=== PATIENT | female | born 1960 | race Caucasian/White ===

== ENCOUNTER 2017-09-06 07:18 | Emergency (ER) | payer OTHER ==
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
[2017-09-06 08:12] VITALS: BP 107/71; PULSE 75; TEMP 98.7; BMI 23.6
== END 2017-09-06 08:51 | disposition home or self-care (01) ==
LOC: FER 07:18
DX: S43.421A Sprain of right rotator cuff capsule, initial encounter (principal); W00.0XXA Fall on same level due to ice and snow, initial encounter; Y93.89 Activity, other specified; Y92.008 Other place in unspecified non-institutional (private) residence as the place of occurrence of the external cause
CPT/HCPCS: 73030-TC-RT-FY; 99281-25

== ENCOUNTER 2018-07-29 08:45 | Emergency (ER) | payer OTHER ==
[2018-07-29 08:49] VITALS: BP 113/69; PULSE 75; TEMP 98; BMI 24.3
--- NOTE | 2018-07-29 08:58 | PDOC ---
History of Present Illness - General Chief Complaint: Pain, Acute Stated Complaint: LEFT KNEE PAIN Time Seen by Provider: 07/29/18 08:57 - History of Present Illness Initial Comments: 07/29/18 09:24 Chief complaint: Left knee pain History of present illness: Patient twisted her left knee while walking her dog yesterday. Ambulating but with pain. Swelling. Review of systems: No distal pain, numbness, tingling, or limited range of motion. Remainder systems negative Past medical history: History of torn meniscus in the same knee 10 years ago. Otherwise healthy female, takes 1 baby aspirin daily for prophylaxis. Otherwise no other medications. Social/family history reviewed and noncontributory Physical exam: Alert and oriented well-developed well-nourished no acute distress cheerful and cooperative. Ambulating with a slight limp. Afebrile, vital signs normal HEENT clear Neck supple without bruit mass or nodes Chest clear CV regular without murmur rub or gallop Abdomen benign Neurological C2 to 12 intact. Strength full and symmetric. No focal sensory or motor deficits. Slight limp due to left knee pain Extremities no CCE There is mild swelling of the left knee medially, without warmth or erythema. No definite effusion. No joint space tenderness suggestive of acute meniscus injury. There is tenderness over the MCL. Stress tenderness is present. No laxity. LCL is normal. Lockman is indeterminate due to pain and guarding. Pulses full and symmetric. No distal sensory or motor deficits. Patella and patellar retinaculum intact and nontender Impression: Sprain MCL. Condition of ACL is uncertain, although there is no massive swelling or effusion that would suggest a torn ACL. Plan: X-ray is negative. Knee immobilizer. Motrin. Orthopedic follow-up. Patient adequately ambulatory and in no severe pain upon discharge to follow-up as directed Past History - Past Medical History Allergies/Adverse Reactions: Allergies Allergy/AdvReac Type Severity Reaction Status Date / Time ondansetron Allergy Verified 07/29/18 08:46 shellfish derived AdvReac Verified 07/29/18 08:46 Home Medications: Ambulatory Orders Aspirin [ASA -] 81 mg PO DAILY 09/06/17 Levothyroxine [Synthroid -] 150 mcg PO DAILY 09/06/17 Diclofenac Sodium 75 mg PO BID PRN #10 tablet. 07/29/18 COPD: No Thyroid Disease: Yes - Surgical History Cholecystectomy: Yes - Suicide/Smoking/Psychosocial Hx Smoking History: Current every day smoker Have you smoked in the past 12 months: Yes Number of Cigarettes Smoked Daily: 20 Information on smoking cessation initiated: Yes 'Breaking Loose' booklet given: 09/06/17 Hx Alcohol Use: Yes (OCASIONAL) Drug/Substance Use Hx: No Substance Use Type: None *Physical Exam - Vital Signs Last Vital Signs Temp Pulse Resp BP Pulse Ox 98.0 F 75 17 113/69 100 07/29/18 08:46 07/29/18 08:46 07/29/18 08:46 07/29/18 08:46 07/29/18 08:46 Moderate Sedation - Procedure Monitoring Vital Signs: Procedure Monitoring Vital Signs Temperature 98.0 F 07/29/18 08:46 Pulse Rate 75 07/29/18 08:46 Respiratory Rate 17 07/29/18 08:46 Blood Pressure 113/69 07/29/18 08:46 O2 Sat by Pulse Oximetry (%) 100 07/29/18 08:46 *DC/Admit/Observation/Transfer Diagnosis at time of Disposition: Left knee sprain Qualifiers: Encounter type: initial encounter Involved ligament of knee: medial collateral ligament Qualified Code(s): S83.412A - Sprain of medial collateral ligament of left knee, initial encounter - Discharge Dispostion Disposition: HOME Condition at time of disposition: Improved Decision to Admit order: No - Referrals Referrals: Hakeem Bryant MD [Staff Physician] - 1 week - Patient Instructions Printed Discharge Instructions: DI for Knee Sprain, How to Use an Elastic Bandage-Knee Sprain Additional Instructions: Rest, ice, elevate, elastic bandage. See orthopedist if no improvement one week. - Post Discharge Activity Forms/Work/School Notes: Back to Work
== END 2018-07-29 10:06 | disposition home or self-care (01) ==
LOC: FER 08:45
DX: S83.412A Sprain of medial collateral ligament of left knee, initial encounter (principal); X58.XXXA Exposure to other specified factors, initial encounter; Y93.89 Activity, other specified; Y92.89 Other specified places as the place of occurrence of the external cause; F17.210 Nicotine dependence, cigarettes, uncomplicated; E07.9 Disorder of thyroid, unspecified
CPT/HCPCS: 73560-TC-LT-FY; 99282-25

== ENCOUNTER 2019-03-18 10:06 | Day surgery (SDC) | payer OTHER ==
[2019-03-15 10:42] VITALS: BMI 24.0
--- NOTE | 2019-03-18 07:49 | OP ---
Operative Note - Note: Operative Date: 03/18/19 Pre-Operative Diagnosis: Left lateral meniscus tear Operation: Left partial lateral meniscectomy Post-Operative Diagnosis: Same as Pre-op Surgeon: Hakeem Bryant Physician Executive: Radha Reyes Anesthesia: General Operative Report Dictated: Yes
[~2019-03-18 10:06] MED LIST: LACTATED RINGERS SOLUTION 1,000 ML IV SCH; PROMETHAZINE HCL 25 MG/1 ML VIAL IVPUSH PRN; oxyCODONE HCL 5 MG TABLET PO PRN
[2019-03-18] MEDS ORDERED: SODIUM CHLORIDE 0.9% P/F 10 ML VIAL IJ ONE (10:11)
[2019-03-18] MEDS ORDERED: ceFAZolin SODIUM 1 GM VIAL ONE (10:11)
[2019-03-18] MEDS ORDERED: DEXAMETHASONE SOD PHOSPHATE 4 MG/1 ML VIAL ONE (10:11)
[2019-03-18] MEDS ORDERED: KETOROLAC TROMETHAMINE 30 MG/1 ML VIAL ONE (10:11)
[2019-03-18] MEDS ORDERED: MIDAZOLAM HCL 2 MG/2 ML SINGLE DOSE VIAL ONE (10:11)
[2019-03-18] MEDS ORDERED: PROPOFOL 20 ML ONE (10:13)
[2019-03-18] MEDS ORDERED: BUPIVACAINE HCL/PF 2.5 MG/ML - 30 ML VIAL IJ ONE (10:53)
--- NOTE | 2019-03-18 12:39 | OP ---
DATE OF OPERATION: 03/18/2019 POSTOPERATIVE DIAGNOSIS: Left knee lateral meniscal tear. POSTOPERATIVE DIAGNOSIS: Left knee lateral meniscal tear plus greater than anticipated degenerative change. PROCEDURE: Left knee arthroscopy with partial lateral meniscectomy. SURGEON: Hakeem Mcwilliams MD TEAM LEADER SURGERY: MANDY Weaver ANESTHESIA: General. POSTOPERATIVE CONDITION: Stable. COMPLICATIONS: None. INDICATIONS: This is a pleasant woman who had been suffering increasingly discomforting knee pain. She was found to have lateral meniscal tear in the setting of some mild arthritic changes. Treatment options were discussed including nonoperative versus operative management. Given the patient had failed multiple nonoperative modalities, she elected for arthroscopic care. Surgical risks were discussed in detail including bleeding, infection, neurovascular injury, need for further surgery, postoperative pain and stiffness, progression of osteoarthritis. We discussed medical risks such as heart attack, stroke, DVT, PE, and . I addressed the use of perioperative antibiotic and DVT prophylaxis. I reviewed all of the patient's questions . She voiced understanding and elected to proceed. DESCRIPTION OF PROCEDURE: The patient was brought to the operating room where general anesthetic was administered. The left lower extremity was prepped and draped in the usual sterile fashion. Preoperative dose of antibiotics were given, and the usual time-out procedure was performed. The portal sites were then marked out and then subcutaneously were injected with 0.25% Marcaine. A lateral portal was established. The arthroscope was passed into the knee. Examination of the patellofemoral joint demonstrated some full-thickness loss of cartilage along the lateral patellar facet. The trochlea had moderate partial thickness chondral loss. The arthroscope was passed down into the notch where the ACL and PCL were visualized to be intact. The arthroscope was now passed into the medial compartment. Here, a medial portal was established under spinal needle localization. Examination of the medial femoral condyle demonstrated full-thickness fissuring along the more lateral portion of the condyle and extended slightly into the more medial portion. The meniscus was probed and found to be stable and without tears. The arthroscope was now passed into the lateral compartment. Here, full-thickness chondral loss was noted along the lateral aspect of the lateral femoral condyle, and moderate partial thickness loss was noted along the tibia surface. The meniscus was significantly degenerative with tear extending from the posterior horn into the midbody. Given the chronicity of the tear, some of the meniscus had already been lost to natural processes. Utilizing the shaver, the meniscus was debrided down to a stable base. At this point, the excess fluid was withdrawn from the joint. The portals were sutured using 3-0 nylon. Sterile dressings were placed. Patient was extubated and transferred to recovery room in stable condition. HAKEEM MCWILLIAMS M.D. [id number]
[2019-03-18 13:28] VITALS: TEMP 98.3
[2019-03-18 13:55] VITALS: PULSE 64
[2019-03-18 17:14] VITALS: BP 113/64
== END 2019-03-18 15:10 | disposition home or self-care (01) ==
LOC: FASU 10:06
PROVIDERS: ATTEND Orthopaedic Surgery Sports Medicine
PROC: 0SBD4ZZ Excision of Left Knee Joint, Percutaneous Endoscopic Approach (ICD-10-PCS; principal; 2019-03-18 11:41)
DX: S83.282A Other tear of lateral meniscus, current injury, left knee, initial encounter (principal); M17.12 Unilateral primary osteoarthritis, left knee; Y93.9 Activity, unspecified; Y92.9 Unspecified place or not applicable
CPT/HCPCS: 94760

== ENCOUNTER 2022-03-27 07:48 | Day surgery (SDC) | payer OTHER ==
[2022-03-25 08:52] VITALS: BMI 23.6
[2022-03-27] MEDS ORDERED: TRANEXAMIC ACID 1000 MG/10 ML VIAL IVPUSH ONE (08:30)
[2022-03-27] MEDS ORDERED: CEFAZOLIN 2 GM in DEXTROSE 5%-WATER - 50 ML IVPB ONE (08:30)
[2022-03-27] MEDS ORDERED: MIDAZOLAM HCL 2 MG/2 ML SINGLE DOSE VIAL ONE ×2 (11:21→12:51)
[2022-03-27] MEDS ORDERED: BUPIVACAINE HCL/PF 0.5% (5MG/ML) 10 ML VIAL ONE (11:21)
[2022-03-27] MEDS ORDERED: BUPIVACAINE LIPOSOME/PF (EXPAREL) 266 MG/20 ML VIAL ONE (11:21)
[2022-03-27] MEDS ORDERED: SODIUM CHLORIDE 0.9% P/F 10 ML VIAL IJ ONE (11:22)
[2022-03-27] MEDS ORDERED: DEXAMETHASONE SOD PHOSPHATE 4 MG/1 ML VIAL ONE (12:07)
[2022-03-27] MEDS ORDERED: KETOROLAC TROMETHAMINE 30 MG/1 ML VIAL ONE (12:07)
[2022-03-27] MEDS ORDERED: TRANEXAMIC ACID 1000 MG/10 ML VIAL ONE ×2 (12:07→13:21)
[2022-03-27] MEDS ORDERED: ceFAZolin SODIUM 1 GM VIAL ONE (12:07)
[2022-03-27] MEDS ORDERED: PROPOFOL 60 ML ONE (12:14)
[2022-03-27] MEDS ORDERED: PROMETHAZINE HCL 25 MG/1 ML VIAL ONE (12:14)
[2022-03-27] MEDS ORDERED: LIDOCAINE HCL/PF 2% SDV 5ML VIAL ONE (12:50)
[2022-03-27] MEDS ORDERED: MAG HYDROX/AL HYDROX/SIMETH 30 ML UNIT-DOSE CUP PO PRN (14:29)
[2022-03-27] MEDS ORDERED: MAGNESIUM HYDROX 2400MG/30ML ORAL SUSPENSION 30 ML CUP PO PRN (14:29)
[2022-03-27] MEDS: ACETAMINOPHEN 500 MG TABLET (FP) PO SCH ×2 (14:30→21:04)
[2022-03-27] MEDS ORDERED: LACTATED RINGERS SOLUTION 1,000 ML IV SCH (14:30)
[2022-03-27] MEDS ORDERED: ALPRAZolam 1 MG TABLET PO PRN (14:32)
[2022-03-27] MEDS ORDERED: oxyCODONE HCL 5 MG TABLET PO PRN (14:33)
[2022-03-27] MEDS ORDERED: FENTANYL CITRATE/PF 50 MCG/ML VIAL ONE (14:53)
[2022-03-27] MEDS: CEFAZOLIN SODIUM 2 GM in DEXTROSE 5%-WATER 100 ML IVPB SCH (19:45)
[2022-03-27] MEDS: ASPIRIN 81 MG CHEWABLE TABLETS PO SCH (21:04)
[2022-03-27] MEDS: SENNOSIDES/DOCUSATE COMBO (SENNA PLUS) TABLET (UD) PO SCH (21:04)
[2022-03-27] MEDS: CELECOXIB 200 MG CAPSULE PO SCH (21:04)
[2022-03-28] MEDS: CEFAZOLIN SODIUM 2 GM in DEXTROSE 5%-WATER 100 ML IVPB SCH (03:01)
[2022-03-28] MEDS: ACETAMINOPHEN 500 MG TABLET (FP) PO SCH ×2 (03:15→09:02)
[2022-03-28] MEDS: oxyCODONE HCL 5 MG TABLET PO PRN ×4 (03:20→10:24)
[2022-03-28] MEDS ORDERED: LEVOTHYROXINE NA 150 MCG TABLET PO SCH (07:00)
[2022-03-28 08:20] LABS: HEMATOCRIT 37.6 % (32.4-45.2); HEMOGLOBIN 12.8 G/dL (10.7-15.3); MCH 32.3 pg (25.7-33.7); MCHC 34.1 g/dl (32.0-36.0); MEAN CELL VOLUME 94.6 fl (80-96); RBC 3.97 10^6/uL (3.60-5.2); RDW 14.2 % (11.6-15.6); WHITE BLOOD COUNT 15.6 10^3/uL (4.0-10.8)
[2022-03-28 08:24] LABS: CALCIUM 8.5 mg/dl (8.5-10); CREATININE 0.8 mg/dl (0.55-1.3)
[2022-03-28] MEDS: ASPIRIN 81 MG CHEWABLE TABLETS PO SCH (09:01)
[2022-03-28] MEDS: CELECOXIB 200 MG CAPSULE PO SCH (09:01)
[2022-03-28] MEDS: SENNOSIDES/DOCUSATE COMBO (SENNA PLUS) TABLET (UD) PO SCH (09:02)
[2022-03-28 09:21] VITALS: BP 108/56; PULSE 53; RESP 16; TEMP 98.4
[2022-03-28] MEDS ORDERED: PANTOPRAZOLE 40 MG TABLET PO SCH (10:00)
[2022-03-28] MEDS ORDERED: ACETAMINOPHEN 500 MG TABLET (FP) PO SCH (17:00)
== END 2022-03-28 12:07 | disposition home or self-care (01) ==
LOC: FASUSAT 07:48 → FM/S 15:49 → FASUSAT 03-28 12:07
PROVIDERS: ATTEND Orthopaedic Surgery
PROC: 0SRD0J9 Replacement of Left Knee Joint with Synthetic Substitute, Cemented, Open Approach (ICD-10-PCS; principal; 2022-03-27 12:30)
DX: M17.12 Unilateral primary osteoarthritis, left knee (principal)
CPT/HCPCS: 27447; C1776; 36415; 73560-TC-LT-FY; 80048; 85027; 94760; 97010-GP; 97116-GP; 97162-GP; C1889

== ENCOUNTER 2022-12-30 14:13 | Emergency (ER) | payer OTHER ==
[2022-12-30] MEDS ORDERED: predniSONE 20 MG TABLET (UD) PO ONE (14:23)
[2022-12-30 14:24] VITALS: BP 116/52; PULSE 62; RESP 15; TEMP 98.6; BMI 22.8
[2022-12-30] MEDS ORDERED: predniSONE 20 MG TABLET (UD) ONE (14:25)
== END 2022-12-30 14:38 | disposition home or self-care (01) ==
LOC: FER 14:13
DX: R21 Rash and other nonspecific skin eruption (principal); L23.7 Allergic contact dermatitis due to plants, except food
CPT/HCPCS: 99283-25

== ENCOUNTER 2023-08-06 08:08 | Day surgery (SDC) | payer OTHER ==
[2023-07-25 16:02] VITALS: BMI 23.2
[2023-08-06] MEDS ORDERED: CELECOXIB 200 MG CAPSULE ONE (08:25)
[2023-08-06] MEDS ORDERED: CEFAZOLIN 2 GM in DEXTROSE 5%-WATER - 50 ML IVPB ONE (09:15)
[2023-08-06] MEDS ORDERED: CELECOXIB 200 MG CAPSULE PO ONE (09:15)
[2023-08-06] MEDS ORDERED: PROPOFOL 20 ML ONE ×2 (09:40→11:52)
[2023-08-06] MEDS ORDERED: MIDAZOLAM HCL 2 MG/2 ML SINGLE DOSE VIAL ONE (09:40)
[2023-08-06] MEDS ORDERED: ROPIVACAINE HCL 0.5% 30ML VIAL ONE (09:41)
[2023-08-06] MEDS ORDERED: ACETAMINOPHEN INJECTION 100 ML IVPB ONE (09:42)
[2023-08-06] MEDS ORDERED: BUPIVACAINE LIPOSOME/PF (EXPAREL) 266 MG/20 ML VIAL ONE (10:13)
[2023-08-06] MEDS ORDERED: BUPIVACAINE HCL/PF 0.5% (5MG/ML) 10 ML VIAL ONE (10:14)
[2023-08-06] MEDS ORDERED: TRANEXAMIC ACID 1000 MG/10 ML VIAL ONE (11:06)
[2023-08-06] MEDS ORDERED: MAG HYDROX/AL HYDROX/SIMETH 30 ML UNIT-DOSE CUP PO PRN (13:27)
[2023-08-06] MEDS ORDERED: MAGNESIUM HYDROX 2400MG/30ML ORAL SUSPENSION 30 ML CUP PO PRN (13:27)
[2023-08-06] MEDS: oxyCODONE HCL 5 MG TABLET PO PRN ×2 (16:28→20:43)
[2023-08-06] MEDS: CEFAZOLIN SODIUM 2 GM in DEXTROSE 5%-WATER 100 ML IVPB SCH (18:04)
[2023-08-06] MEDS: ACETAMINOPHEN 1000 MG/100 ML BAG IVPB SCH (20:44)
[2023-08-06] MEDS: FAMOTIDINE 20 MG TABLET PO SCH (21:06)
[2023-08-06] MEDS: SENNOSIDES/DOCUSATE COMBO (SENNA PLUS) TABLET (UD) PO SCH (21:06)
[2023-08-06] MEDS: DEXAMETHASONE 4 MG TABLET (FP) PO SCH (21:06)
[2023-08-06] MEDS: ASPIRIN 81 MG CHEWABLE TABLETS PO SCH (21:06)
[2023-08-06] MEDS: oxyCODONE HCL 10 MG SUSTAINED ACTING TABLET PO SCH ×2 (21:07→21:09)
[2023-08-06] MEDS: LACTATED RINGERS SOLUTION 1,000 ML IV SCH (21:08)
[2023-08-06] MEDS: TRANEXAMIC ACID 1000 MG/10 ML VIAL IVPB SCH (21:09)
[2023-08-07] MEDS: CEFAZOLIN SODIUM 2 GM in DEXTROSE 5%-WATER 100 ML IVPB SCH (01:20)
[2023-08-07] MEDS: oxyCODONE HCL 5 MG TABLET PO PRN ×3 (01:25→12:45)
[2023-08-07 01:26] VITALS: RESP 18
[2023-08-07] MEDS: ACETAMINOPHEN 1000 MG/100 ML BAG IVPB SCH ×2 (03:55→12:46)
[2023-08-07] MEDS ORDERED: METOCLOPRAMIDE HCL INJECTION 10 MG/2 ML VIAL IVPUSH ONE (06:40)
[2023-08-07] MEDS ORDERED: LEVOTHYROXINE NA 150 MCG TABLET PO SCH (07:00)
[2023-08-07] MEDS: ASPIRIN 81 MG CHEWABLE TABLETS PO SCH (09:18)
[2023-08-07] MEDS: TRANEXAMIC ACID 1000 MG/10 ML VIAL IVPB SCH (09:18)
[2023-08-07] MEDS: FAMOTIDINE 20 MG TABLET PO SCH (09:18)
[2023-08-07] MEDS: SENNOSIDES/DOCUSATE COMBO (SENNA PLUS) TABLET (UD) PO SCH (09:19)
[2023-08-07] MEDS: oxyCODONE HCL 10 MG SUSTAINED ACTING TABLET PO SCH (09:19)
[2023-08-07] MEDS: DEXAMETHASONE 4 MG TABLET (FP) PO SCH (09:19)
[2023-08-07] MEDS ORDERED: MULTIVITAMINS (DAILY MVI) TABLET (FP) PO SCH (10:00)
[2023-08-07] MEDS: LACTATED RINGERS SOLUTION 1,000 ML IV SCH (12:44)
[2023-08-07 13:02] VITALS: BP 124/64; PULSE 67; TEMP 98
== END 2023-08-07 14:50 | disposition home health service (06) ==
LOC: FASU 08:08 → FM/S 15:51 → FASU 08-07 14:50
PROVIDERS: ATTEND Orthopaedic Surgery
PROC: 0SRC0J9 Replacement of Right Knee Joint with Synthetic Substitute, Cemented, Open Approach (ICD-10-PCS; principal; 2023-08-06 11:23)
DX: M17.11 Unilateral primary osteoarthritis, right knee (principal)
CPT/HCPCS: 27447; C1776; 73560-TC-RT-FY; 94760; 97010-GP; 97116-GP; 97162-GP; C1889; J0131

== ENCOUNTER 2024-08-21 06:48 | Emergency (ER) | payer OTHER ==
[2024-08-21 06:57] VITALS: BP 106/77; PULSE 82; RESP 18; TEMP 97.2; BMI 22.8
[2024-08-21] MEDS ORDERED: ACETAMINOPHEN 325 MG TABLET (FP) ONE (07:23)
[2024-08-21] MEDS: ACETAMINOPHEN 325 MG TABLET (FP) PO ONE (07:30)
== END 2024-08-21 09:14 | disposition home or self-care (01) ==
LOC: FER 06:48
PROC: 2W3RX1Z Immobilization of Left Lower Leg using Splint (ICD-10-PCS; principal; 2024-08-21)
DX: S82.832A Other fracture of upper and lower end of left fibula, initial encounter for closed fracture (principal); X50.1XXA Overexertion from prolonged static or awkward postures, initial encounter; Y93.01 Activity, walking, marching and hiking
CPT/HCPCS: 73610-TC-LT-FY; 99283-25